=== PATIENT | female | born 1975 | race American Indian/Alaskan Native ===

== ENCOUNTER → 2022-02-07 14:01 | Outpatient (CLI) | payer OTHER, SELFPAY ==
[2022-02-08 08:08] LABS: Candida species Negative (Negative); Gardnerella vaginalis Negative (Negative); Trichomoas vaginalis Negative (Negative)
== END ==
PROVIDERS: Visit Provider Physician Assistant Medical
DX: R35.0 Frequency of micturition (principal); R39.89 Other symptoms and signs involving the genitourinary system; Z87.440 Personal history of urinary (tract) infections; N76.0 Acute vaginitis
CPT/HCPCS: 87086; 87480; 87510; 87660